=== PATIENT | male | born 1990 | race Two or more races ===

== ENCOUNTER 2021-06-19 21:20 | Inpatient (IN) | payer MEDICAID, OTHER ==
[~2021-06-19] VITALS: Ht 172.7 cm; Wt 82.0 kg
[2021-06-19] MEDS ORDERED: ONDANSETRON HCL 4 MG/2 ML VIAL IV ONE (22:00)
[2021-06-19] MEDS ORDERED: SODIUM CHLORIDE 0.9% 2,000 ML IV ONE (22:00)
[2021-06-19] MEDS ORDERED: AZITHROMYCIN 500MG/ 250ML 250 ML IV ONE (22:00)
[2021-06-19] MEDS ORDERED: methylPREDNISolone SOD SUCC 125 MG/2 ML VL IV ONE (22:00)
[2021-06-19] MEDS ORDERED: SODIUM CHLORIDE 0.9% 500 ML IV ONE (22:00)
[2021-06-19 22:19] LABS: Basophils # (auto) 0 10 ^3/uL (0-0.2); Basophils % (auto) 0.2 % (0.0-2.0); Eosinophils # (auto) 0.1 10 ^3/uL (0-0.8); Eosinophils % (auto) 0.6 % (0.0-7.0); Hematocrit 41.3 % (41.0-53.0); Hemoglobin 13.8 g/dL (13.5-17.5); Lymphocytes # (auto) 0.6 10 ^3/uL (0.4-5.4); Lymphocytes % (auto) 6.1 % (10.0-50.0); Mean Corpuscular Hemoglobin 29.2 pg (28.0-32.0); Mean Corpuscular Hgb Conc. 33.3 g/dL (32.0-36.0); Mean Corpuscular Volume 87.7 fL (80.0-100.0); Monocytes # (auto) 0.6 10 ^3/uL (0-1.3); Monocytes % (auto) 6.4 % (0.0-12.0); Neutrophils % (auto) 86.7 % (37.0-80.0); Nucleated Red Blood Cells % 0.1 %; Red Blood Cells 4.71 10^6/uL (4.5-5.90); Red Cell Distribution Width 14.4 % (11.8-14.3); White Blood Cell 9.2 10^3/uL (4.4-10.8)
[2021-06-19 22:37] LABS: Albumin 2.8 g/dL (3.4-5.0); Calcium 8.7 mg/dL (8.5-10.1); Potassium 3.7 mmol/L (3.5-5.1)
[2021-06-19 22:40] LABS: BUN/Creatinine Ratio 12.9; Bilirubin, Total 1.4 mg/dL (0.2-1.0)
[2021-06-19] MEDS ORDERED: DexAMETHasone SOD PHOS 10MG/1ML VIAL INJ IV ONE (23:30)
[2021-06-19] MEDS ORDERED: PIPERACILLIN-TAZOB 3.375GM 100 ML IV ONE (23:30)
[2021-06-20 00:26] LABS: Lactic Acid w/Reflex 2.9 mmol/L (0.4-2.0)
[2021-06-20] MEDS ORDERED: NOREPINEPHRINE 8 MG/250ML KIT 250 ML IV ONE (01:01)
[2021-06-20] MEDS: NOREPINEPHRINE 8 MG/250ML KIT 250 ML IV SCH ×2 (01:15→15:00)
[2021-06-20] MEDS ORDERED: ONDANSETRON HCL 4 MG/2 ML VIAL IV PRN ×2 (06:00→13:30)
[2021-06-20] MEDS ORDERED: ACETAMINOPHEN 325 MG TAB PO PRN (06:00)
[2021-06-20] MEDS ORDERED: NITROGLYCERIN 0.4 MG SL TAB SL PRN (06:00)
[2021-06-20] MEDS ORDERED: SODIUM CHLORIDE 0.9% 1,000 ML IV SCH (06:00)
[2021-06-20] MEDS ORDERED: MORPHINE SULFATE INJECTION 2 MG/ML SYRG IV PRN (06:00)
[2021-06-20] MEDS ORDERED: DOCUSATE SOD 100 MG CAP PO PRN (06:00)
[2021-06-20 07:32] LABS: Basophils # (auto) 0 10 ^3/uL (0-0.2); Basophils % (auto) 0.2 % (0.0-2.0); Eosinophils # (auto) 0 10 ^3/uL (0-0.8); Eosinophils % (auto) 0.2 % (0.0-7.0); Lymphocytes # (auto) 0.6 10 ^3/uL (0.4-5.4); Lymphocytes % (auto) 7.8 % (10.0-50.0); Mean Corpuscular Hemoglobin 30.1 pg (28.0-32.0); Mean Corpuscular Hgb Conc. 34.1 g/dL (32.0-36.0); Mean Corpuscular Volume 88.2 fL (80.0-100.0); Monocytes # (auto) 0.3 10 ^3/uL (0-1.3); Monocytes % (auto) 3.7 % (0.0-12.0); Neutrophils # (auto) 7.2 10 ^3/uL (1.6-8.6); Neutrophils % (auto) 88.1 % (37.0-80.0); Nucleated Red Blood Cells % 0.1 %; Red Blood Cells 4.31 10^6/uL (4.5-5.90); Red Cell Distribution Width 14.8 % (11.8-14.3); White Blood Cell 8.2 10^3/uL (4.4-10.8)
[2021-06-20 07:34] LABS: Potassium 4.1 mmol/L (3.5-5.1)
[2021-06-20 07:43] LABS: Albumin 2.3 g/dL (3.4-5.0); BUN/Creatinine Ratio 16.2; Bilirubin, Total 1.2 mg/dL (0.2-1.0); Total Protein 6.2 g/dL (6.4-8.2)
[2021-06-20] MEDS ORDERED: cefTRIAXone 1GM/50ML D5W 50 ML IV SCH (09:00)
[2021-06-20] MEDS: ASCORBIC ACID 500 MG TAB PO SCH ×2 (10:00→22:50)
[2021-06-20] MEDS ORDERED: HEPARIN SODIUM (PORCINE) 5000 UNITS/ML 1ML VIAL SC SCH (10:00)
[2021-06-20 10:25] LABS: Urine Bacteria NONE SEEN /hpf (None Seen); Urine Blood Negative /uL (Negative); Urine Specific Gravity 1.022 (1.001-1.035); Urine WBC 1 /hpf (0 - 3)
[2021-06-20] MEDS: ZINC SULFATE 220mg CAP or TAB PO SCH (10:47)
[2021-06-20] MEDS: DexAMETHasone SOD PHOS 10MG/1ML VIAL INJ IV SCH (10:47)
[2021-06-20] MEDS: MULTIPLE VITAMIN TAB PO SCH (10:47)
[2021-06-20] MEDS: FAMOTIDINE (10MG/ML) 2ML VL IV SCH ×2 (10:47→22:50)
[2021-06-20 12:10] LABS: Hepatitis A Ab IgM Negative
[2021-06-20 12:11] LABS: Hepatitis B Core IgM Negative; Hepatitis B Surface Antigen Negative (Negative); Hepatitis C Antibody Negative (Negative)
[2021-06-20] MEDS ORDERED: LORazepam 0.5 MG TAB PO PRN (13:30)
[2021-06-20] MEDS ORDERED: REMDESIVIR PER PHARMACY 0 ML IV SCH (13:30)
[2021-06-20] MEDS ORDERED: ALBUMIN 25% 100 ML IV ONE (13:45)
[2021-06-20] MEDS ORDERED: CHOLECALCIFEROL (VITD3) 2,000 UNIT CAP/TAB PO ONE (13:45)
[2021-06-20] MEDS ORDERED: FUROSEMIDE 20 MG/2 ML VIAL IV ONE (13:45)
[2021-06-20 14:01] LABS: Cholesterol 99 mg/dL (< 200)
[2021-06-20 14:04] LABS: HDL Cholesterol 7 mg/dL (40-59); LDL Cholesterol 25 mg/dL (< 100); Triglycerides 370 mg/dL (< 150)
[2021-06-20] MEDS ORDERED: SOD CHL 0.9%/ KCL 20MEQ 1,000 ML IV SCH (14:15)
[2021-06-20 17:07] LABS: Lactic Acid w/Reflex 2.5 mmol/L (0.4-2.0)
[2021-06-20] MEDS: CALCIUM W/VIT D (600MG/400IU) TAB PO SCH (18:06)
[2021-06-20] MEDS ORDERED: POTASSIUM CHL 20 Meq TABLET PO SCH (22:00)
[2021-06-20] MEDS ORDERED: ATORVASTATIN 20 MG TAB PO ONE (22:00)
[2021-06-20] MEDS ORDERED: AZITHROMYCIN 500MG/ 250ML 250 ML IV SCH (22:00)
[2021-06-20] MEDS ORDERED: ENOXAPARIN SOD 40 MG/0.4 ML SYRINGE SC SCH (22:00)
[2021-06-20] MEDS: ALBUMIN 25% 100 ML IV SCH (23:09)
[2021-06-21] MEDS: DOXYCYCLINE 100MG/250ML 250 ML IV SCH ×3 (01:00→21:58)
[2021-06-21] MEDS: ALBUMIN 25% 100 ML IV SCH (06:00)
[2021-06-21] MEDS: FUROSEMIDE 20 MG/2 ML VIAL IV SCH ×2 (06:33→18:12)
[2021-06-21 07:05] LABS: Basophils # (auto) 0 10 ^3/uL (0-0.2); Basophils % (auto) 0.1 % (0.0-2.0); Eosinophils # (auto) 0 10 ^3/uL (0-0.8); Eosinophils % (auto) 0.1 % (0.0-7.0); Hematocrit 34.9 % (41.0-53.0); Hemoglobin 11.8 g/dL (13.5-17.5); Lymphocytes % (auto) 7.6 % (10.0-50.0); Mean Corpuscular Hemoglobin 29.7 pg (28.0-32.0); Mean Corpuscular Hgb Conc. 33.7 g/dL (32.0-36.0); Mean Corpuscular Volume 88.1 fL (80.0-100.0); Monocytes # (auto) 0.4 10 ^3/uL (0-1.3); Monocytes % (auto) 3.2 % (0.0-12.0); Neutrophils # (auto) 12.2 10 ^3/uL (1.6-8.6); Red Blood Cells 3.95 10^6/uL (4.5-5.90); White Blood Cell 13.7 10^3/uL (4.4-10.8)
[2021-06-21 07:20] LABS: Albumin 2.6 g/dL (3.4-5.0); Calcium 8.2 mg/dL (8.5-10.1); Magnesium 2.1 mg/dL (1.6-2.6); Potassium 3.8 mmol/L (3.5-5.1)
[2021-06-21 07:26] LABS: Bilirubin, Total 0.6 mg/dL (0.2-1.0); Phosphorus 2.2 mg/dL (2.5-4.90); Total Protein 5.8 g/dL (6.4-8.2)
[2021-06-21 08:28] LABS: INR 1.11 (0.9-1.15); Partial Thromboplastin Time 34.6 sec (23.6-33.0)
[2021-06-21] MEDS: DOCUSATE SOD 100 MG CAP PO SCH (09:18)
[2021-06-21] MEDS: ASCORBIC ACID 500 MG TAB PO SCH (09:18)
[2021-06-21] MEDS: CALCIUM W/VIT D (600MG/400IU) TAB PO SCH ×2 (09:19→18:11)
[2021-06-21] MEDS: ASPirin 81 mg TAB PO SCH (09:19)
[2021-06-21] MEDS: ZINC SULFATE 220mg CAP or TAB PO SCH (09:19)
[2021-06-21] MEDS: CHOLECALCIFEROL (VITD3) 2,000 UNIT CAP/TAB PO SCH (09:20)
[2021-06-21] MEDS: DexAMETHasone SOD PHOS 10MG/1ML VIAL INJ IV SCH (09:22)
[2021-06-21] MEDS: FAMOTIDINE (10MG/ML) 2ML VL IV SCH ×2 (09:23→21:57)
[2021-06-21] MEDS: MULTIPLE VITAMIN TAB PO SCH (09:29)
[2021-06-21] MEDS: PHENYLEPHRINE INJ 40 MG in SODIUM CHL 0.9% 246 ML IV SCH (09:40)
[2021-06-21 09:56] LABS: Amphetamine Screen, Urine NEGATIVE (NEGATIVE); Barbiturate Scree,Urine NEGATIVE (NEGATIVE); Cannabinoid Screen, Urine NEGATIVE (NEGATIVE)
[2021-06-21] MEDS: ENOXAPARIN SOD 80 MG/0.8ML SYRINGE SC SCH ×2 (10:00→21:59)
[2021-06-21] MEDS ORDERED: IVERMECTIN 3 MG TAB PO SCH (10:00)
[2021-06-21] MEDS ORDERED: ENOXAPARIN SOD 100 MG/1 ML SYRINGE SC SCH (10:00)
[2021-06-21 10:04] LABS: Alcohol, Urine < 3.0 mg/dL (0-10); Benzodiazephine Screen, Urine NEGATIVE (NEGATIVE); Cocaine Screen, Urine POSITIVE (NEGATIVE); Opiate Scree,Urine NEGATIVE (NEGATIVE); Phencyclidine Screen, Urine NEGATIVE (NEGATIVE)
[2021-06-21] MEDS ORDERED: methylPREDNISolone SOD SUCC 40 MG/ML VL IV ONE (10:15)
[2021-06-21] MEDS ORDERED: IOHEXOL 350 MG/ML 100ML IJ ONE (10:57)
[2021-06-21] MEDS ORDERED: POTASSIUM PHOSPHATE 26.4 MEQ in SODIUM CHL 0.9% 100 ML IV ONE (11:30)
[2021-06-21] MEDS: DOBUTamine 1000MCG/ML 250 ML IV SCH ×2 (11:58→21:24)
[2021-06-21 12:09] LABS: Protein, Urine 41.3 mg/dL (0.0-11.9)
[2021-06-21 12:09] LABS: Free T4 (Free Thyroxine) 0.78 ng/dL (0.89-1.76)
[2021-06-21 12:10] LABS: T3 Total 0.48 ng/mL (0.60-1.81)
[2021-06-21] MEDS: ERGOCALCIFEROL 50,000 UNIT(1.25MG) CAP PO SCH (12:50)
[2021-06-21 13:52] LABS: Alcohol, Urine < 3.0 mg/dL (0-10); Amphetamine Screen, Urine NEGATIVE (NEGATIVE); Barbiturate Scree,Urine NEGATIVE (NEGATIVE); Benzodiazephine Screen, Urine NEGATIVE (NEGATIVE); Cannabinoid Screen, Urine NEGATIVE (NEGATIVE); Cocaine Screen, Urine POSITIVE (NEGATIVE); Opiate Scree,Urine NEGATIVE (NEGATIVE); Phencyclidine Screen, Urine NEGATIVE (NEGATIVE)
[2021-06-21] MEDS: methylPREDNISolone SOD SUCC 40 MG/ML VL IV SCH (21:58)
[2021-06-21] MEDS: ATORVASTATIN 20 MG TAB PO SCH (21:59)
[2021-06-22] MEDS: PHENYLEPHRINE INJ 40 MG in SODIUM CHL 0.9% 246 ML IV SCH ×2 (02:56→18:35)
[2021-06-22] MEDS: FUROSEMIDE 20 MG/2 ML VIAL IV SCH ×2 (06:43→18:25)
[2021-06-22 07:18] LABS: Basophils # (auto) 0 10 ^3/uL (0-0.2); Basophils % (auto) 0.1 % (0.0-2.0); Eosinophils # (auto) 0 10 ^3/uL (0-0.8); Hematocrit 37.6 % (41.0-53.0); Hemoglobin 12.7 g/dL (13.5-17.5); Lymphocytes % (auto) 6.6 % (10.0-50.0); Mean Corpuscular Hemoglobin 29.4 pg (28.0-32.0); Mean Corpuscular Hgb Conc. 33.7 g/dL (32.0-36.0); Mean Corpuscular Volume 87.1 fL (80.0-100.0); Monocytes # (auto) 0.5 10 ^3/uL (0-1.3); Monocytes % (auto) 3.1 % (0.0-12.0); Neutrophils # (auto) 13.8 10 ^3/uL (1.6-8.6); Neutrophils % (auto) 90.2 % (37.0-80.0); Red Blood Cells 4.32 10^6/uL (4.5-5.90); Red Cell Distribution Width 15.2 % (11.8-14.3); White Blood Cell 15.3 10^3/uL (4.4-10.8)
[2021-06-22 07:33] LABS: INR 1.14 (0.9-1.15); Partial Thromboplastin Time 32.8 sec (23.6-33.0)
[2021-06-22 07:40] LABS: Potassium 3.7 mmol/L (3.5-5.1)
[2021-06-22 07:50] LABS: Albumin 2.5 g/dL (3.4-5.0); BUN/Creatinine Ratio 25.6; Bilirubin, Total 0.5 mg/dL (0.2-1.0); Calcium 8.4 mg/dL (8.5-10.1); Magnesium 2.3 mg/dL (1.6-2.6); Phosphorus 3.1 mg/dL (2.5-4.90)
[2021-06-22] MEDS: CALCIUM W/VIT D (600MG/400IU) TAB PO SCH ×2 (08:19→18:26)
[2021-06-22] MEDS: DOBUTamine 1000MCG/ML 250 ML IV SCH ×2 (08:44→21:38)
[2021-06-22] MEDS: FAMOTIDINE (10MG/ML) 2ML VL IV SCH ×2 (10:45→22:20)
[2021-06-22] MEDS: methylPREDNISolone SOD SUCC 40 MG/ML VL IV SCH ×2 (10:46→22:20)
[2021-06-22] MEDS: ASPirin 81 mg TAB PO SCH (10:46)
[2021-06-22] MEDS: DOXYCYCLINE 100MG/250ML 250 ML IV SCH ×2 (10:46→22:20)
[2021-06-22] MEDS: CHOLECALCIFEROL (VITD3) 2,000 UNIT CAP/TAB PO SCH (10:46)
[2021-06-22] MEDS: DOCUSATE SOD 100 MG CAP PO SCH (10:46)
[2021-06-22] MEDS: ENOXAPARIN SOD 80 MG/0.8ML SYRINGE SC SCH ×2 (10:47→22:21)
[2021-06-22] MEDS: ATORVASTATIN 20 MG TAB PO SCH (22:21)
[2021-06-22] MEDS: SACUBITRIL-VALSARTAN 24mg/26mg TAB PO SCH (22:21)
[2021-06-23] MEDS: FUROSEMIDE 20 MG/2 ML VIAL IV SCH ×2 (05:29→18:16)
[2021-06-23 07:01] LABS: Potassium 3.6 mmol/L (3.5-5.1)
[2021-06-23 07:11] LABS: Albumin 2.6 g/dL (3.4-5.0); BUN/Creatinine Ratio 30.5; Bilirubin, Total 0.6 mg/dL (0.2-1.0); Calcium 8.2 mg/dL (8.5-10.1); Total Protein 5.9 g/dL (6.4-8.2)
[2021-06-23] MEDS ORDERED: ANGIOMAX 250 MG VIAL IV ONE (07:18)
[2021-06-23] MEDS ORDERED: fentaNYL CITRATE 100 MCG/2 ML VL ONE (07:19)
[2021-06-23] MEDS ORDERED: SODIUM CHL 0.9% 0 ML ONE (07:19)
[2021-06-23] MEDS ORDERED: MIDAZOLAM HCL 2MG/2ML 2ml VIAL (1mg/ml) ONE (07:19)
[2021-06-23] MEDS ORDERED: VERAPAMIL 2.5MG/ML INJ 2ML VIAL IV ONE (07:19)
[2021-06-23] MEDS ORDERED: HEPARIN SODIUM (PORCINE) 5000 UNITS/ML 1ML VIAL ONE (07:19)
[2021-06-23] MEDS ORDERED: LIDOCAINE 2%HCL (LOCAL ANESTH.) INJ 20ML MDV ONE (07:25)
[2021-06-23] MEDS ORDERED: IODIXANOL 320MG/ML 100ML BTL IV ONE (07:26)
[2021-06-23] MEDS: CALCIUM W/VIT D (600MG/400IU) TAB PO SCH ×2 (08:00→18:16)
[2021-06-23] MEDS ORDERED: ONDANSETRON HCL 4 MG/2 ML VIAL IV PRN (08:52)
[2021-06-23] MEDS: DOBUTamine 1000MCG/ML 250 ML IV SCH (10:19)
[2021-06-23] MEDS: ENOXAPARIN SOD 40 MG/0.4 ML SYRINGE SC SCH ×2 (10:21→21:56)
[2021-06-23] MEDS: methylPREDNISolone SOD SUCC 40 MG/ML VL IV SCH ×2 (11:44→21:55)
[2021-06-23] MEDS: FAMOTIDINE (10MG/ML) 2ML VL IV SCH ×2 (11:44→21:54)
[2021-06-23] MEDS: ASPirin 81 mg TAB PO SCH (11:45)
[2021-06-23] MEDS: DOCUSATE SOD 100 MG CAP PO SCH (11:45)
[2021-06-23] MEDS: DOXYCYCLINE 100MG/250ML 250 ML IV SCH ×2 (11:45→22:15)
[2021-06-23] MEDS: SACUBITRIL-VALSARTAN 24mg/26mg TAB PO SCH ×2 (11:45→21:56)
[2021-06-23] MEDS: CHOLECALCIFEROL (VITD3) 2,000 UNIT CAP/TAB PO SCH (11:45)
[2021-06-23 12:11] LABS: Hepatitis A Total Antibody Negative
[2021-06-23 12:20] LABS: Hepatitis B Surface Antigen Negative (Negative)
[2021-06-23 12:27] LABS: Hepatitis B Surface Antibody Negative
[2021-06-23 12:35] VITALS: BP 115/54
[2021-06-23 12:56] LABS: Hepatitis B Core Total AB Negative
[2021-06-23 13:58] LABS: Hepatitis C Antibody Negative (Negative)
[2021-06-23 17:00] VITALS: BP 97/56
[2021-06-23 21:30] VITALS: BP 95/61
[2021-06-23] MEDS: ATORVASTATIN 20 MG TAB PO SCH (21:56)
[2021-06-24 05:00] VITALS: BP 91/56
[2021-06-24] MEDS: DOBUTamine 1000MCG/ML 250 ML IV SCH (06:00)
[2021-06-24] MEDS: FUROSEMIDE 20 MG/2 ML VIAL IV SCH ×2 (06:00→18:00)
[2021-06-24 06:48] LABS: BUN/Creatinine Ratio 33.8; Calcium 8.1 mg/dL (8.5-10.1); Potassium 3.9 mmol/L (3.5-5.1)
[2021-06-24 08:00] VITALS: BP 111/46
[2021-06-24] MEDS: DOXYCYCLINE 100MG/250ML 250 ML IV SCH ×2 (10:12→22:32)
[2021-06-24] MEDS: ENOXAPARIN SOD 40 MG/0.4 ML SYRINGE SC SCH ×2 (10:12→22:33)
[2021-06-24] MEDS: FAMOTIDINE (10MG/ML) 2ML VL IV SCH ×2 (10:12→22:32)
[2021-06-24] MEDS: methylPREDNISolone SOD SUCC 40 MG/ML VL IV SCH ×2 (10:12→22:32)
[2021-06-24] MEDS: CALCIUM W/VIT D (600MG/400IU) TAB PO SCH ×2 (10:12→18:00)
[2021-06-24] MEDS: DOCUSATE SOD 100 MG CAP PO SCH (10:12)
[2021-06-24] MEDS: CHOLECALCIFEROL (VITD3) 2,000 UNIT CAP/TAB PO SCH (10:12)
[2021-06-24] MEDS: ASPirin 81 mg TAB PO SCH (10:12)
[2021-06-24] MEDS: SACUBITRIL-VALSARTAN 24mg/26mg TAB PO SCH ×2 (10:13→22:32)
[2021-06-24] MEDS: HYDROcodone-ACET 5/325MG TAB PO PRN (10:27)
[2021-06-24 11:56] VITALS: BP 104/61
[2021-06-24 16:00] VITALS: BP 102/46
[2021-06-24 21:00] VITALS: BP 111/43
[2021-06-24] MEDS: ATORVASTATIN 20 MG TAB PO SCH (22:33)
[2021-06-25 05:00] VITALS: BP 106/55
[2021-06-25] MEDS: FUROSEMIDE 20 MG/2 ML VIAL IV SCH ×2 (06:03→18:00)
[2021-06-25] MEDS: DOBUTamine 1000MCG/ML 250 ML IV SCH (06:16)
[2021-06-25 06:52] LABS: BUN/Creatinine Ratio 31.1; Calcium 8.2 mg/dL (8.5-10.1); Potassium 4.3 mmol/L (3.5-5.1)
[2021-06-25 07:01] LABS: CRP High Sensitivity 2.18 mg/dL (< 0.3)
[2021-06-25] MEDS: DOXYCYCLINE 100MG/250ML 250 ML IV SCH (08:23)
[2021-06-25] MEDS: methylPREDNISolone SOD SUCC 40 MG/ML VL IV SCH (08:25)
[2021-06-25] MEDS: CALCIUM W/VIT D (600MG/400IU) TAB PO SCH ×2 (08:25→18:38)
[2021-06-25] MEDS: ASPirin 81 mg TAB PO SCH (08:26)
[2021-06-25] MEDS: DOCUSATE SOD 100 MG CAP PO SCH (08:26)
[2021-06-25] MEDS: FAMOTIDINE (10MG/ML) 2ML VL IV SCH ×2 (08:26→21:10)
[2021-06-25] MEDS: ENOXAPARIN SOD 40 MG/0.4 ML SYRINGE SC SCH ×2 (08:26→21:11)
[2021-06-25] MEDS: CHOLECALCIFEROL (VITD3) 2,000 UNIT CAP/TAB PO SCH (08:26)
[2021-06-25] MEDS: SACUBITRIL-VALSARTAN 24mg/26mg TAB PO SCH ×2 (08:26→21:11)
[2021-06-25 09:00] VITALS: BP 103/51
[2021-06-25] MEDS ORDERED: DAPAGLIFLOZIN 5 MG TAB PO SCH (10:00)
[2021-06-25] MEDS: CARVEDILOL 3.125 MG TAB PO SCH ×2 (10:00→21:12)
[2021-06-25 13:00] VITALS: BP_SYST 136; BP_SYST 96; BP_DIAS 55; BP_DIAS 80
[2021-06-25 17:00] VITALS: BP 95/49
[2021-06-25] MEDS: ATORVASTATIN 20 MG TAB PO SCH (21:11)
[2021-06-25 22:00] VITALS: BP 103/58
[2021-06-26] MEDS: HYDROcodone-ACET 5/325MG TAB PO PRN (03:48)
[2021-06-26 05:00] VITALS: BP 99/61
[2021-06-26] MEDS: FUROSEMIDE 20 MG/2 ML VIAL IV SCH ×2 (05:13→17:35)
[2021-06-26 09:00] VITALS: BP 96/55
[2021-06-26] MEDS: CARVEDILOL 3.125 MG TAB PO SCH ×2 (09:10→21:29)
[2021-06-26] MEDS: ASPirin 81 mg TAB PO SCH (09:10)
[2021-06-26] MEDS: ENOXAPARIN SOD 40 MG/0.4 ML SYRINGE SC SCH ×2 (09:10→21:18)
[2021-06-26] MEDS: DOCUSATE SOD 100 MG CAP PO SCH (09:10)
[2021-06-26] MEDS: SACUBITRIL-VALSARTAN 24mg/26mg TAB PO SCH ×2 (09:10→21:18)
[2021-06-26] MEDS: CALCIUM W/VIT D (600MG/400IU) TAB PO SCH ×2 (09:10→17:35)
[2021-06-26] MEDS: FAMOTIDINE (10MG/ML) 2ML VL IV SCH ×2 (09:10→21:17)
[2021-06-26] MEDS: CHOLECALCIFEROL (VITD3) 2,000 UNIT CAP/TAB PO SCH (09:11)
[2021-06-26] MEDS: methylPREDNISolone SOD SUCC 40 MG/ML VL IV SCH (09:18)
[2021-06-26 13:00] VITALS: BP 95/52
[2021-06-26 17:00] VITALS: BP 94/62
[2021-06-26] MEDS: ATORVASTATIN 20 MG TAB PO SCH (21:18)
[2021-06-26 21:53] VITALS: BP 103/61
[2021-06-27 04:40] VITALS: BP 100/54
[2021-06-27] MEDS: FUROSEMIDE 20 MG/2 ML VIAL IV SCH ×2 (05:12→20:06)
[2021-06-27 09:00] VITALS: BP 90/55
[2021-06-27] MEDS: CARVEDILOL 3.125 MG TAB PO SCH ×2 (10:00→21:23)
[2021-06-27] MEDS: ASPirin 81 mg TAB PO SCH (10:22)
[2021-06-27] MEDS: CHOLECALCIFEROL (VITD3) 2,000 UNIT CAP/TAB PO SCH (10:22)
[2021-06-27] MEDS: CALCIUM W/VIT D (600MG/400IU) TAB PO SCH ×2 (10:23→20:06)
[2021-06-27] MEDS: SACUBITRIL-VALSARTAN 24mg/26mg TAB PO SCH ×2 (10:23→21:23)
[2021-06-27] MEDS: methylPREDNISolone SOD SUCC 40 MG/ML VL IV SCH (10:23)
[2021-06-27] MEDS: DOCUSATE SOD 100 MG CAP PO SCH (10:23)
[2021-06-27] MEDS: FAMOTIDINE (10MG/ML) 2ML VL IV SCH ×2 (10:23→21:22)
[2021-06-27] MEDS: ENOXAPARIN SOD 40 MG/0.4 ML SYRINGE SC SCH ×2 (10:24→21:24)
[2021-06-27 13:00] VITALS: BP 92/51
[2021-06-27 17:00] VITALS: BP 102/57
[2021-06-27] MEDS: ATORVASTATIN 20 MG TAB PO SCH (21:23)
[2021-06-27 22:00] VITALS: BP 107/56
[2021-06-28 05:00] VITALS: BP 104/58
[2021-06-28] MEDS: FUROSEMIDE 20 MG/2 ML VIAL IV SCH ×2 (05:24→19:06)
[2021-06-28 06:25] LABS: Potassium 3.7 mmol/L (3.5-5.1)
[2021-06-28 06:35] LABS: Basophils # (auto) 0.1 10 ^3/uL (0-0.2); Basophils % (auto) 0.3 % (0.0-2.0); Eosinophils # (auto) 0.2 10 ^3/uL (0-0.8); Hematocrit 41.2 % (41.0-53.0); Hemoglobin 14.1 g/dL (13.5-17.5); Lymphocytes # (auto) 2.5 10 ^3/uL (0.4-5.4); Lymphocytes % (auto) 14.8 % (10.0-50.0); Mean Corpuscular Hemoglobin 29.9 pg (28.0-32.0); Mean Corpuscular Hgb Conc. 34.1 g/dL (32.0-36.0); Mean Corpuscular Volume 87.5 fL (80.0-100.0); Monocytes # (auto) 1.4 10 ^3/uL (0-1.3); Monocytes % (auto) 8.3 % (0.0-12.0); Neutrophils # (auto) 12.7 10 ^3/uL (1.6-8.6); Neutrophils % (auto) 75.6 % (37.0-80.0); Red Blood Cells 4.71 10^6/uL (4.5-5.90); Red Cell Distribution Width 14.8 % (11.8-14.3); White Blood Cell 16.9 10^3/uL (4.4-10.8)
[2021-06-28 06:47] LABS: BUN/Creatinine Ratio 28.2; CRP High Sensitivity 2.39 mg/dL (< 0.3); Calcium 8.4 mg/dL (8.5-10.1)
[2021-06-28 09:00] VITALS: BP 94/53
[2021-06-28] MEDS: SACUBITRIL-VALSARTAN 24mg/26mg TAB PO SCH (09:19)
[2021-06-28] MEDS: FAMOTIDINE (10MG/ML) 2ML VL IV SCH (09:19)
[2021-06-28] MEDS: DOCUSATE SOD 100 MG CAP PO SCH (09:19)
[2021-06-28] MEDS: methylPREDNISolone SOD SUCC 40 MG/ML VL IV SCH (09:19)
[2021-06-28] MEDS: ENOXAPARIN SOD 40 MG/0.4 ML SYRINGE SC SCH (09:19)
[2021-06-28] MEDS: CARVEDILOL 3.125 MG TAB PO SCH (09:20)
[2021-06-28] MEDS: ASPirin 81 mg TAB PO SCH (09:20)
[2021-06-28] MEDS: CHOLECALCIFEROL (VITD3) 2,000 UNIT CAP/TAB PO SCH (09:20)
[2021-06-28] MEDS: CALCIUM W/VIT D (600MG/400IU) TAB PO SCH ×2 (09:26→19:06)
[2021-06-28] MEDS: ERGOCALCIFEROL 50,000 UNIT(1.25MG) CAP PO SCH (12:07)
[2021-06-28 13:27] VITALS: BP 105/55
[2021-06-28 17:10] VITALS: BP 106/63
[2021-06-28 18:10] VITALS: BP 106/63
== END 2021-06-28 19:36 | disposition home or self-care (01) | DRG 192 ==
LOC: ER 21:21 → TELE 06-20 05:55 → TELE-EAST 06-23 15:33
PROVIDERS: ADMIT Nurse Practitioner Family; ATTEND Internal Medicine
PROC: 4A023N8 Measurement of Cardiac Sampling and Pressure, Bilateral, Percutaneous Approach (ICD-10-PCS; principal; 2021-06-23)
PROC: B215YZZ Fluoroscopy of Left Heart using Other Contrast (ICD-10-PCS; 2021-06-23)
PROC: B211YZZ Fluoroscopy of Multiple Coronary Arteries using Other Contrast (ICD-10-PCS; 2021-06-23)
DX: I50.21 Acute systolic (congestive) heart failure (principal); R57.0 Cardiogenic shock; N17.0 Acute kidney failure with tubular necrosis; J12.82 Pneumonia due to coronavirus disease 2019; D69.6 Thrombocytopenia, unspecified; U07.1 COVID-19; I95.9 Hypotension, unspecified; D89.839 Cytokine release syndrome, grade unspecified; I21.A1 Myocardial infarction type 2; R79.89 Other specified abnormal findings of blood chemistry; N18.31 Chronic kidney disease, stage 3a; E88.09 Other disorders of plasma-protein metabolism, not elsewhere classified; D64.9 Anemia, unspecified; E55.9 Vitamin D deficiency, unspecified; R70.0 Elevated erythrocyte sedimentation rate; I51.4 Myocarditis, unspecified; E78.1 Pure hyperglyceridemia; F14.10 Cocaine abuse, uncomplicated; Z82.49 Family history of ischemic heart disease and other diseases of the circulatory system; Z86.16 Personal history of COVID-19
CPT/HCPCS: 36415; 71045; 71275; 76705; 80048; 80053; 80061; 80074; 80307; 81001; 82150; 82306; 82570; 82728; 82962; 83036; 83605; 83690; 83735; 83880; 84100; 84156; 84300; 84439; 84443; 84480; 84484; 84550; 85025; 85379; 85610; 85652; 85730; 86141; 86658; 86703; 86704; 86706; 86708; 86803; 87040; 87086; 87340; 87426; 87804; 93005; 93306; 93970; 96365; 96366; 96368; 96375; 99152; C1751; G0378; J0696; J1100; J2250; J2405; J2543; J3490; P9047; Q9967